=== PATIENT | female | born 1960 | race Native Hawaiian/Other Pacific Islander ===

== ENCOUNTER 2018-01-08 12:58 | Outpatient (CLI) | payer OTHER | END 2018-01-08 20:57 | disposition home or self-care (01) | LOC: LAB 12:58 | DX: N39.0 Urinary tract infection, site not specified (principal) | CPT/HCPCS: 87077; 87086; 87088; 87186 ==

== ENCOUNTER 2018-02-25 15:36 | Outpatient (CLI) | payer OTHER | END 2018-02-25 22:26 | disposition home or self-care (01) | LOC: RAD 15:36 | DX: M54.42 Lumbago with sciatica, left side (principal); M25.552 Pain in left hip ==

== ENCOUNTER 2018-04-21 12:34 | Outpatient (CLI) | payer OTHER ==
[2018-04-21 13:09] LABS: PLATELET COUNT 189 K/uL (152-353)
== END 2018-04-21 22:02 | disposition home or self-care (01) ==
LOC: RAD 12:34
PROVIDERS: Internal Medicine
DX: M25.552 Pain in left hip (principal); E03.8 Other specified hypothyroidism; E53.8 Deficiency of other specified B group vitamins
CPT/HCPCS: 36415; 82607; 84439; 84443; 85027

== ENCOUNTER 2019-03-27 11:10 | Outpatient (CLI) | payer OTHER ==
[2019-03-27 11:27] LABS: PLATELET COUNT 184 K/uL (152-353)
[2019-03-27 18:16] LABS: POTASSIUM 4.6 mmol/L (3.6-5.2)
== END 2019-03-27 20:42 | disposition home or self-care (01) ==
LOC: LABW 11:10
PROVIDERS: Internal Medicine
DX: E11.9 Type 2 diabetes mellitus without complications (principal)
CPT/HCPCS: 36415; 80053; 80061; 81000; 85027

== ENCOUNTER 2019-11-06 21:33 | Emergency (ER) | payer OTHER ==
[~2019-11-06] VITALS: Ht 165.1 cm; Wt 99.8 kg
[2019-11-07 00:15] VITALS: BP 135/70; TEMP 98.6
== END 2019-11-07 00:15 | disposition home or self-care (01) ==
LOC: ED 21:33
DX: S00.83XA Contusion of other part of head, initial encounter (principal); S16.1XXA Strain of muscle, fascia and tendon at neck level, initial encounter; W01.198A Fall on same level from slipping, tripping and stumbling with subsequent striking against other object, initial encounter; Y92.89 Other specified places as the place of occurrence of the external cause
CPT/HCPCS: 99283

== ENCOUNTER 2019-11-09 14:21 | Outpatient (CLI) | payer OTHER | END 2019-11-09 21:38 | disposition home or self-care (01) | LOC: RAD 14:21 | DX: S16.1XXD Strain of muscle, fascia and tendon at neck level, subsequent encounter (principal) ==

== ENCOUNTER 2020-02-05 11:25 | Outpatient (CLI) | payer OTHER ==
[2020-02-05 14:34] LABS: PLATELET COUNT 163 K/uL (152-353)
[2020-02-05 14:38] LABS: POTASSIUM 3.8 mmol/L (3.6-5.2)
== END 2020-02-05 19:01 | disposition home or self-care (01) ==
LOC: RAD 11:25
PROVIDERS: Internal Medicine
DX: D50.8 Other iron deficiency anemias (principal); E20.8 Other hypoparathyroidism; E53.1 Pyridoxine deficiency; E53.8 Deficiency of other specified B group vitamins; E55.9 Vitamin D deficiency, unspecified; E56.1 Deficiency of vitamin K; E56.9 Vitamin deficiency, unspecified; E60 Dietary zinc deficiency; Z98.84 Bariatric surgery status; E61.8 Deficiency of other specified nutrient elements; R07.89 Other chest pain
CPT/HCPCS: 36415; 80053; 82306; 82525; 82607; 82728; 82746; 83540; 83550; 83735; 83918; 83970; 84100; 84207; 84255; 84425; 84446; 84590; 84597; 84630; 85027

== ENCOUNTER 2020-03-28 08:56 | Outpatient (CLI) | payer MEDICARE ==
[2020-03-28 09:47] LABS: PLATELET COUNT 148 K/uL (152-353)
== END 2020-03-28 21:47 | disposition home or self-care (01) ==
LOC: LABW 08:56
PROVIDERS: Podiatrist
DX: Z01.810 Encounter for preprocedural cardiovascular examination (principal); Z01.811 Encounter for preprocedural respiratory examination; Z01.812 Encounter for preprocedural laboratory examination; E11.9 Type 2 diabetes mellitus without complications
CPT/HCPCS: 80053; 83036; 85027

== ENCOUNTER 2020-06-14 11:17 | Outpatient (CLI) | payer MEDICARE | END 2020-06-14 20:30 | disposition home or self-care (01) | LOC: LAB 11:17 | DX: N39.0 Urinary tract infection, site not specified (principal) | CPT/HCPCS: 87077; 87086; 87088; 87186 ==

== ENCOUNTER 2020-08-29 10:46 | Outpatient (CLI) | payer MEDICARE ==
[2020-08-29 11:38] LABS: PLATELET COUNT 152 K/uL (152-353)
== END 2020-08-29 19:42 | disposition home or self-care (01) ==
LOC: LABW 10:46
PROVIDERS: ATTEND Surgery
DX: D50.8 Other iron deficiency anemias (principal); E20.8 Other hypoparathyroidism; E53.1 Pyridoxine deficiency; E53.8 Deficiency of other specified B group vitamins; E55.9 Vitamin D deficiency, unspecified; E56.1 Deficiency of vitamin K; E56.9 Vitamin deficiency, unspecified; E60 Dietary zinc deficiency; Z98.84 Bariatric surgery status
CPT/HCPCS: 36415; 80053; 82306; 82525; 82607; 82728; 82746; 83540; 83550; 83735; 83918; 83970; 84100; 84207; 84255; 84425; 84446; 84590; 84597; 84630; 85027

== ENCOUNTER 2021-01-16 09:35 | Outpatient (CLI) | payer MEDICARE ==
[2021-01-16 10:19] LABS: PLATELET COUNT 148 K/uL (152-353)
[2021-01-16 10:38] LABS: POTASSIUM 4.1 mmol/L (3.6-5.2)
== END 2021-01-16 19:29 | disposition home or self-care (01) ==
LOC: LABW 09:35
PROVIDERS: ATTEND Internal Medicine
DX: E03.8 Other specified hypothyroidism (principal); I10 Essential (primary) hypertension; E11.9 Type 2 diabetes mellitus without complications; R82.998 Other abnormal findings in urine
CPT/HCPCS: 36415; 80053; 80061; 81000; 83036; 84439; 84443; 85027; 87077; 87086; 87088; 87186

== ENCOUNTER 2021-08-18 10:17 | Outpatient (CLI) | payer OTHER ==
[2021-08-18 11:31] LABS: PLATELET COUNT 145 K/uL (152-353)
[2021-08-18 11:56] LABS: POTASSIUM 4.2 mmol/L (3.6-5.2)
== END 2021-08-18 19:16 | disposition home or self-care (01) ==
LOC: LABW 10:17
PROVIDERS: ATTEND Surgery
DX: D50.8 Other iron deficiency anemias (principal); E20.8 Other hypoparathyroidism; E53.1 Pyridoxine deficiency; E53.8 Deficiency of other specified B group vitamins; E55.9 Vitamin D deficiency, unspecified; E56.1 Deficiency of vitamin K; E56.9 Vitamin deficiency, unspecified; E60 Dietary zinc deficiency; E61.8 Deficiency of other specified nutrient elements; Z98.84 Bariatric surgery status
CPT/HCPCS: 36415; 80053; 82306; 82525; 82607; 82728; 82746; 83540; 83550; 83735; 83921; 83970; 84100; 84207; 84255; 84425; 84446; 84590; 84597; 84630; 85027

== ENCOUNTER 2021-09-01 10:04 | Outpatient (CLI) | payer OTHER | END 2021-09-01 18:58 | disposition home or self-care (01) | LOC: LAB 10:04 | PROVIDERS: ATTEND Internal Medicine | DX: R50.9 Fever, unspecified (principal); K14.6 Glossodynia; R68.89 Other general symptoms and signs; Z11.52 Encounter for screening for COVID-19 | CPT/HCPCS: 87502; 87635; G2023; U0003 ==

== ENCOUNTER 2021-10-10 10:32 | Outpatient (CLI) | payer OTHER ==
[2021-10-10 14:11] LABS: POTASSIUM 4.3 mmol/L (3.6-5.2)
[2021-10-10 14:23] LABS: PLATELET COUNT 157 K/uL (152-353)
== END 2021-10-10 18:53 | disposition home or self-care (01) ==
LOC: LABW 10:32
PROVIDERS: ATTEND Internal Medicine
DX: N39.0 Urinary tract infection, site not specified (principal)
CPT/HCPCS: 36415; 80053; 81000; 85027; 87077; 87086; 87088; 87186

== ENCOUNTER 2022-01-10 09:26 | Outpatient (CLI) | payer OTHER | END 2022-01-10 19:15 | disposition home or self-care (01) | LOC: US 09:26 | PROVIDERS: ATTEND Internal Medicine | DX: R10.11 Right upper quadrant pain (principal) ==

== ENCOUNTER 2022-01-22 08:12 | Outpatient (CLI) | payer OTHER | END 2022-01-22 18:53 | disposition home or self-care (01) | LOC: NM 08:12 | PROVIDERS: ATTEND Internal Medicine | DX: K80.21 Calculus of gallbladder without cholecystitis with obstruction (principal) | CPT/HCPCS: A9537 ==

== ENCOUNTER 2022-01-23 18:28 | Emergency (ER) | payer OTHER ==
[~2022-01-23] VITALS: Ht 165.1 cm; Wt 99.8 kg
[2022-01-23 19:30] VITALS: BP 116/79; TEMP 984
== END 2022-01-23 19:30 | disposition home or self-care (01) ==
LOC: ED 18:28
DX: R10.11 Right upper quadrant pain (principal); K81.0 Acute cholecystitis
CPT/HCPCS: 96372; 99283; J2175; J2405

== ENCOUNTER 2022-05-30 10:43 | Outpatient (CLI) | payer OTHER ==
[2022-05-30 11:23] LABS: PLATELET COUNT 123 K/uL (152-353)
[2022-05-30 11:37] LABS: POTASSIUM 3.7 mmol/L (3.6-5.2)
== END 2022-05-30 19:08 | disposition home or self-care (01) ==
LOC: LABW 10:43
PROVIDERS: ATTEND Internal Medicine
DX: E03.8 Other specified hypothyroidism (principal); I10 Essential (primary) hypertension; R82.998 Other abnormal findings in urine
CPT/HCPCS: 36415; 80053; 80061; 81000; 84439; 84443; 85027; 87077; 87086; 87088; 87186

== ENCOUNTER 2022-08-31 08:19 | Outpatient (CLI) | payer OTHER ==
[2022-08-31 09:36] LABS: POTASSIUM 4.2 mmol/L (3.6-5.2)
[2022-08-31 09:40] LABS: PLATELET COUNT 134 K/uL (152-353)
== END 2022-08-31 19:01 | disposition home or self-care (01) ==
LOC: LABW 08:19
PROVIDERS: ATTEND Surgery
DX: D50.8 Other iron deficiency anemias (principal); E53.8 Deficiency of other specified B group vitamins; E55.9 Vitamin D deficiency, unspecified; E56.9 Vitamin deficiency, unspecified; E53.1 Pyridoxine deficiency; E60 Dietary zinc deficiency; Z98.84 Bariatric surgery status
CPT/HCPCS: 36415; 80053; 82306; 82525; 82607; 82728; 82746; 83540; 83550; 83735; 83921; 83970; 84100; 84207; 84255; 84425; 84446; 84590; 84597; 84630; 85027

== ENCOUNTER 2023-03-27 13:29 | Outpatient (CLI) | payer OTHER | END 2023-03-27 19:03 | disposition home or self-care (01) | LOC: LAB 13:29 | PROVIDERS: ATTEND Internal Medicine | DX: R19.7 Diarrhea, unspecified (principal); D64.89 Other specified anemias | CPT/HCPCS: 82272; 83630; 87015; 87045; 87324; 87328; 87329; 87449; 87507; 87899 ==

== ENCOUNTER 2023-04-02 09:48 | Outpatient (CLI) | payer OTHER | END 2023-04-02 19:21 | disposition home or self-care (01) | LOC: LABW 09:48 | PROVIDERS: ATTEND Surgery | DX: D50.8 Other iron deficiency anemias (principal); E20.8 Other hypoparathyroidism; E53.1 Pyridoxine deficiency; E53.8 Deficiency of other specified B group vitamins; E55.9 Vitamin D deficiency, unspecified; E56.1 Deficiency of vitamin K; E56.9 Vitamin deficiency, unspecified; E60 Dietary zinc deficiency; Z98.84 Bariatric surgery status | CPT/HCPCS: 36415; 82306; 82310; 82525; 82607; 83735; 83921; 83970; 84100; 84207; 84255; 84425; 84590; 84597; 84630 ==

== ENCOUNTER 2023-06-08 09:37 | Outpatient (CLI) | payer OTHER ==
[2023-06-08 10:37] LABS: PLATELET COUNT 157 K/uL (152-353)
[2023-06-08 11:23] LABS: POTASSIUM 4.4 mmol/L (3.6-5.2)
== END 2023-06-08 18:38 | disposition home or self-care (01) ==
LOC: LABW 09:37
PROVIDERS: ATTEND Surgery
DX: D50.8 Other iron deficiency anemias (principal); E20.8 Other hypoparathyroidism; E53.1 Pyridoxine deficiency; E53.8 Deficiency of other specified B group vitamins; E55.9 Vitamin D deficiency, unspecified; E56.1 Deficiency of vitamin K; E56.9 Vitamin deficiency, unspecified; E60 Dietary zinc deficiency; Z98.84 Bariatric surgery status
CPT/HCPCS: 36415; 80053; 82306; 82525; 82607; 82728; 82746; 83540; 83550; 83735; 83921; 83970; 84100; 84207; 84255; 84425; 84446; 84590; 84597; 84630; 85027

== ENCOUNTER 2023-06-25 14:33 | Outpatient (CLI) | payer OTHER | END 2023-06-25 20:24 | disposition home or self-care (01) | LOC: RAD 14:33 | PROVIDERS: ATTEND Internal Medicine | DX: M79.672 Pain in left foot (principal) ==